=== PATIENT | female | born 1995 | race African-American/Black ===

== ENCOUNTER 2016-11-17 08:31 | Emergency (ER) | payer SELFPAY ==
--- NOTE | 2016-11-17 11:05 | ER Document Report ---
ED Skin Rash/Insect Bite/Abscs - General Chief Complaint: Skin Problem Stated Complaint: SKIN PROBLEM Mode of Arrival: Ambulatory Information source: Patient Notes: 21 y/o F presents to ED c/o persistent itchy rash that began approximately 3 months ago. noted small itchy reddened area to right forearm 3 months ago and now has spread to her upper arm, bilateral lower legs, and groin area. rash seems to improve and worsen intermittently on its own. lives in [facility] and has several roommates but none others have similar symptoms. Denies fever, drainage, swelling, recent illness or travel. has not tried any remedies at home. TRAVEL OUTSIDE OF THE [place] IN LAST 30 DAYS: No - HPI Patient complains to provider of: Skin rash/lesion Onset/Duration: Intermittent, Persistent Quality of pain: No pain Severity: Mild Skin Character: Erythema, Patchy, Rash, Scales Skin Temperature: Warm Quality of rash: Itchy. No: Painful, Burning Identify cause: No Similar symptoms previously: No Recently seen / treated by doctor: No - Related Data Allergies/Adverse Reactions: No Known Drug Allergies Allergy (Verified 11/17/16 08:41) mushrooms Allergy (Uncoded 11/17/16 08:41) rash Past Medical History - General Information source: Patient Last Menstrual Period: unkn - Social History Smoking Status: Never Smoker Frequency of alcohol use: None Drug Abuse: None Lives with: Family Family History: Reviewed & Not Pertinent Patient has suicidal ideation: No Patient has homicidal ideation: No Pulmonary Medical History: Reports: Hx Bronchitis Renal/ Medical History: Reports: Hx Pelvic Inflammatory Disease Surgical Hx: Negative - Immunizations Immunizations up to date: Yes Hx Diphtheria, Pertussis, Tetanus Vaccination: Yes Hx Pneumococcal Vaccination: 11/16/00 Review of Systems - Review of Systems Constitutional: No symptoms reported EENT: No symptoms reported Cardiovascular: No symptoms reported Respiratory: No symptoms reported Gastrointestinal: No symptoms reported Genitourinary: No symptoms reported Female Genitourinary: No symptoms reported Musculoskeletal: No symptoms reported Skin: See HPI Hematologic/Lymphatic: No symptoms reported Neurological/Psychological: No symptoms reported -: Yes All other systems reviewed and negative Physical Exam - Vital signs Vitals: Temp Pulse Resp BP Pulse Ox 97.7 F 62 16 108/59 L 99 11/17/16 08:38 11/17/16 08:38 11/17/16 08:38 11/17/16 08:38 11/17/16 08:38 Interpretation: Normal - General General appearance: Appears well, Alert In distress: None - HEENT Head: Normocephalic, Atraumatic Eyes: Normal Pupils: PERRL - Respiratory Respiratory status: No respiratory distress Chest status: Nontender Breath sounds: Normal Chest palpation: Normal - Cardiovascular Rhythm: Regular Heart sounds: Normal auscultation Murmur: No Pulses: Normal: Radial, Posterior tibial, Dorsalis pedis Normal capillary refill: Yes - Abdominal Inspection: Normal Distension: No distension Bowel sounds: Normal Tenderness: Nontender Organomegaly: No organomegaly - Back Back: Normal, Nontender - Extremities General upper extremity: Normal inspection, Nontender, Normal color, Normal ROM , Normal strength, Normal temperature. No: Tender, Edema General lower extremity: Normal inspection, Nontender, Normal color, Normal ROM , Normal strength, Normal temperature, Normal weight bearing. No: Tender, Edema - Neurological Neuro grossly intact: Yes Cognition: Normal Orientation: AAOx4 [place] Coma Scale Eye Opening: Spontaneous [place] Coma Scale Verbal: Oriented [place] Coma Scale Motor: Obeys Commands [place] Coma Scale Total: 15 Speech: Normal Motor strength normal: LUE, RUE, LLE, RLE Sensory: Normal - Psychological Associated symptoms: Normal affect, Normal mood - Skin Skin Temperature: Warm Skin Moisture: Dry Skin Color: Normal Skin Turgor: Elastic Skin irregularity: Rash - Scattered mildly erythematous maculopapular and slightly scaly areas to bilateral upper and lower extremities and groin area. No swelling, drainage, warmth. Course - Re-evaluation Re-evalutation: 11/17/16 11:15 Patient hemodynamically stable, in no distress, afebrile. Rash suggestive of possible uncomplicated tinea corporis versus mild infection at this time. No suggestion of emergent infectious, inflammatory, viral, or systemic etiology for symptoms. Homecare, follow-up with PCP in dermatology, and ED return precautions discussed with patient and family member who verbalized understanding and agree with plan. - Vital Signs Vital signs: Temp Pulse Resp BP Pulse Ox 97.9 F 58 L 14 93/51 L 99 11/17/16 11:18 11/17/16 11:18 11/17/16 11:18 11/17/16 11:18 11/17/16 11:18 Discharge - Discharge Clinical Impression: Skin abnormality Condition: Stable Disposition: HOME, SELF-CARE Additional Instructions: Tinea Corporis You have a fungal infection of the skin, called tinea corporis. This is sometimes called "ringworm." because it tends forms an enlarging ring on the skin. The infection results from exposure to another person or an animal carrying the fungus, but it is only mildly contagious. There can be mild itching , or sometimes no symptoms at all. The infection is usually treated with antifungal cream. This is applied two or three times daily. Healing may take two or three weeks. Occasionally, oral medication is necessary, for example, when the infection if very large, or if fungus involves the scalp or nails. Fingernail or toenail infections are very difficult to eradicate, often requiring many weeks of treatment. Return for re-examination if your symptoms change significantly -- for example, if you develop fever or chills, red streaks, increasing tenderness, swelling, or blisters at the infection site. Scabies Your exam suggests the possible presence of scabies, which are microscopic parasites of the skin. These mites tameka through the skin, causing severe itching. The mite can be spread to other persons by skin contact. All clothing, towels, and bedding should be washed in very hot water, set aside for a week, then washed again. You should apply scabies-killing lotion from the neck down, then wash it off after 12 hours. You may need medication for itching, as the itch persists for many days after the mites have been killed. All family members and close personal contacts should be examined. Repeat treatment may be necessary if the infestation is not eliminated with a single treatment. Call the doctor if you develop increasing swelling and redness, red streaks , tender lumps, fever, or drainage from a skin sore. Anti-Mite Skin Creams Kwell (lindane 1%) and Elimite (permethrin 5%) kill insects such as fleas, ticks, lice, and mites. These creams are used for treating scabies, a mite that burrows into the skin. They can also be effective against lice. Apply the cream tonight to your entire body from the neck down. Don't allow children to apply the medicine themselves. Do NOT wash your hands after this treatment. Shower off 12 hours later. These medicines aren't harmful during or nursing. One treatment is usually enough to kill the mites; however, the itching will probably continue for another week. You may take diphenhydramine (Benadryl ) or another antihistamine medication for itching. Family members and intimate contacts may require treatment. Please return if you develop increasing swelling or redness, red streaks, tender lumps, fever, or drainage from a skin sore. Topical Antifungal You have been given a prescription for an antifungal skin cream. Examples include Lamisil (terbinafine), Lotrimin (clotrimazole), Monistat-Derm ( miconazole), Nizoral (ketoconazole), and Tinactin (tolnaftate). It may be several days before improvement occurs. You should use the medicine for about two weeks to eliminate the fungus, unless the doctor tells you otherwise. It is unusual to be allergic to these medicines. Call the doctor if you develop blisters, severe itching, worsening redness, swelling, or pain, or if you don't see any improvement within one week. Diphenhydramine The use of diphenhydramine (Benadryl) has been recommended to control allergic symptoms. The 25 mg strength is available over- the-counter, as well as the elixir. This antihistamine is used for many symptoms. It's useful for itching, watering eyes and nose, allergic swelling, hives, and insect stings. The medication can be repeated four times daily. Age Elixir (12.5 mg/tsp) 25 mg pill 1 yr 1/4 tsp 2-3 yr 1/2 tsp 4-8 yr 1 tsp 9-14 yr 2 tsp one tab adult 1-2 tabs Antihistamines may cause drowsiness, especially with the first dose. Do not operate machinery or drive while under the effects of the medication. Do not combine the medication with alcohol, or with any other medication without talking to your doctor. Follow-up with your primary care provider this week. Return to the Emergency Department for any worsening symptoms or concerns. Prescriptions: Permethrin [Elimite] 60 gm TP ONCE #1 cream.gm. Terbinafine HCl [Terbinafine] 1 applic TP BID #1 cream..g. Referrals: HUONG DIETRICH DO [ACTIVE STAFF] - Follow up tomorrow
[2016-11-17 11:25] VITALS: BP 93/51
== END 2016-11-17 11:25 | disposition home or self-care (01) ==
LOC: ER 08:31
DX: R21 Rash and other nonspecific skin eruption (principal)
CPT/HCPCS: 99283

== ENCOUNTER 2017-04-23 00:43 | Emergency (ER) | payer SELFPAY ==
[2017-04-23] MEDS ORDERED: CYCLOBENZAPRINE HCL 10 MG TABLET PO ONE (01:22)
[2017-04-23] MEDS ORDERED: IBUPROFEN 800 MG TABLET PO ONE (01:22)
--- NOTE | 2017-04-23 01:42 | ER Document Report ---
HPI - HPI Patient complains to provider of: fall Onset: Yesterday Onset/Duration: Sudden Quality of pain: Achy, Sharp, Stabbing Pain Level: 4 Context: fall while dancing yesterday morning, flat onto her back. steady gait, (-) UI/SI , saddle anesthesia, weakness, gait abnormality Associated Symptoms: None Exacerbated by: Movement, Walking Relieved by: Remaining still Similar symptoms previously: No Recently seen / treated by doctor: No - CONSTITUTIONAL Constitutional: DENIES: Fever, Chills - CARDIOVASCULAR Cardiovascular: DENIES: Chest pain - REPRODUCTIVE LMP: 03/30/17 Reproductive: DENIES: : - DERM Skin Color: Normal Past Medical History - Social History Smoking Status: Current Every Day Smoker Chew tobacco use (# tins/day): No Drug Abuse: None Family History: Reviewed & Not Pertinent Patient has suicidal ideation: No Patient has homicidal ideation: No Pulmonary Medical History: Reports: Hx Bronchitis Renal/ Medical History: Reports: Hx Pelvic Inflammatory Disease. Denies: Hx Peritoneal Dialysis - Immunizations Immunizations up to date: Yes Hx Diphtheria, Pertussis, Tetanus Vaccination: Yes Hx Pneumococcal Vaccination: 11/16/00 Vertical Provider Document - CONSTITUTIONAL Agree With Documented VS: Yes Exam Limitations: No Limitations General Appearance: WD/WN, No Apparent Distress - INFECTION CONTROL TRAVEL OUTSIDE OF THE [place] IN LAST 30 DAYS: No - HEENT HEENT: Atraumatic, Normocephalic - NECK Neck: Normal Inspection, Other - Motion intact without any pain on motion. No spinous process or paraspinous muscle tenderness to palpation. No evidence of deformity, step-offs - RESPIRATORY O2 Sat by Pulse Oximetry: 98 - CARDIOVASCULAR Pulses: Normal: Radial, Dorsalis pedis - BACK Back: Normal Inspection Notes: With paraspinous muscle tenderness bilaterally of the lumbar spine without evidence of spinous process tenderness. Patient able to flex and extend her back pain and guarding. Patient able to bear weight and ambulate steadily. - MUSCULOSKELETAL/EXTREMETIES Musculoskeletal/Extremeties: MAEW, FROM, Non-Tender, No Edema. negative: Eccymosis - NEURO Level of Consciousness: Awake, Alert, Appropriate Motor/Sensory: No Motor Deficit, No Sensory Deficit - DERM Integumentary: Warm, Dry, No Rash. negative: Abscess, Laceration Course - Re-evaluation Re-evalutation: 04/23/17 06:12 The patient presents with low back pain without signs of spinal cord compression , cauda equina syndrome, infection, aneurysm, or other serious etiology. The patient is neurologically intact. Given the extremely low risk of these diagnoses further testing and evaluation for these possibilities does not appear to be indicated at this time. The patient has been instructed to return if the symptoms worsen or change in any way. - Vital Signs Vital signs: Temp Pulse Resp BP Pulse Ox 97.9 F 118 H 18 105/70 98 04/23/17 00:48 04/23/17 00:48 04/23/17 00:48 04/23/17 00:48 04/23/17 00:48 - Diagnostic Test Radiology reviewed: Image reviewed, Reports reviewed Discharge - Discharge Clinical Impression: Fall, Low back pain Condition: Good Disposition: HOME, SELF-CARE Instructions: Ice Packs ([facility]), Low Back Pain ([facility]), Muscle Strain ([facility]), Warm Packs ([facility]), Use of [id number] Ibuprofen ([facility]) Additional Instructions: Please follow-up with your primary care provider as needed Please take Motrin 600-800 mg every 8 hours as needed for pain. Prescriptions: Cyclobenzaprine HCl [Flexeril 10 mg Tablet] 10 mg PO TIDP PRN #15 tab PRN Reason: Forms: Return to Work
--- NOTE | 2017-04-23 01:49 | RADIOLOGY REPORT (SQ) ---
EXAM DESCRIPTION: L SPINE WHOLE COMPLETED DATE/TIME: 04/23/2017 1:38 am REASON FOR STUDY: back pain after fall COMPARISON: None. NUMBER OF VIEWS: Five views including obliques. TECHNIQUE: AP, lateral, oblique, and sacral radiographic images acquired of the lumbar spine. LIMITATIONS: None. FINDINGS: MINERALIZATION: Normal. SEGMENTATION: Normal. No transitional anatomy. ALIGNMENT: Normal. VERTEBRAE: Maintained height. No fracture or worrisome bone lesion. DISCS: Preserved height. No significant osteophytes or end plate irregularity. POSTERIOR ELEMENTS: Pedicles and facets are intact. No pars defect or posterior arch defects. HARDWARE: None in the spine. PARASPINAL SOFT TISSUES: Normal. PELVIS: Intact as visualized. No fractures or worrisome bone lesions. SI joints intact. OTHER: No other significant finding. IMPRESSION: NORMAL 5 VIEW LUMBAR SPINE. TECHNICAL DOCUMENTATION: JOB ID: [id number] [employer]- All Rights Reserved
[2017-04-23 02:58] VITALS: BP 119/68
== END 2017-04-23 02:56 | disposition home or self-care (01) ==
LOC: ER 00:43
DX: M54.5 Low back pain (principal); F17.200 Nicotine dependence, unspecified, uncomplicated; W01.0XXA Fall on same level from slipping, tripping and stumbling without subsequent striking against object, initial encounter; Y93.49 Activity, other involving dancing and other rhythmic movements
CPT/HCPCS: 72110; 99283

== ENCOUNTER 2017-11-11 17:04 | Emergency (ER) | payer SELFPAY ==
[2017-11-11] MEDS ORDERED: CEPHALEXIN 500 MG CAPSULE PO ONE (18:34)
[2017-11-11] MEDS ORDERED: LIDOCAINE 1%/EPINEPHRINE INJ 20 ML VIAL INJ ONE (18:34)
[2017-11-11] MEDS ORDERED: DIPH/PERTUSS(ACELL)/TETANUS VAC/PF 0.5 ML SYR (>=10YO) IM ONE (18:34)
[2017-11-11] MEDS ORDERED: OXYCODONE-ACETAMINOPHEN 5-325 MG TABLET PO ONE (18:34)
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
[2017-11-11] MEDS ORDERED: HYDROCODONE/ACETAMINOPHEN 5-325 MG (6 TAB/ER DISP) PO PRN (20:01)
[2017-11-11 20:15] VITALS: BP 115/65
== END 2017-11-11 20:15 | disposition home or self-care (01) ==
LOC: ER 17:04
DX: S51.011A Laceration without foreign body of right elbow, initial encounter (principal); Y09 Assault by unspecified means; F17.200 Nicotine dependence, unspecified, uncomplicated; Z23 Encounter for immunization; Z91.018 Allergy to other foods
CPT/HCPCS: 99283; 90471; 90715; 12002; J3490

== ENCOUNTER 2017-11-27 16:52 | Emergency (ER) | payer SELFPAY ==
[2017-11-27 17:25] VITALS: BP 120/68
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
== END 2017-11-27 18:35 | disposition home or self-care (01) ==
LOC: ER 16:52
DX: Z48.02 Encounter for removal of sutures (principal)